=== PATIENT | female | born 1995 | race Caucasian/White ===

== ENCOUNTER 2017-06-19 11:41 | Emergency (ER) | payer BC ==
[2017-06-19 12:05] LABS: #Eosinphils 0.1 thou/uL (0.0-0.7); #Lymphocytes 1.6 thou/uL (1.20-3.40); #Monocytes 0.3 thou/uL (0.11-0.59); #Neutrophils 2.4 thou/uL (1.40-6.50); %Basophils 0.8 % (0.0-1.0); %Eosinophils 1.7 % (0.0-10.0); %Lymphocytes 36.5 % (28.0-48.0); %Monocytes 7.4 % (0.0-4.0); Hematocrit 48.2 % (36.0-47.0); Mean Platelet Volume 7.3 fL (7.4-10.4); Red Blood Cell (RBC) Count 4.92 mill/uL (4.00-5.20); White Blood Cell (WBC) Count 4.4 thou/uL (4.8-10.8)
[2017-06-19 12:17] LABS: Bilirubin Negative (Negative); Blood, Urine Small (Negative); Glucose, Urine (Dipstick) Negative (Negative); Ketone, Urine Negative (Negative); Nitrite Negative (Negative); Protein, Urine (Dipstick) Negative (Neg-Trace); Urobilinogen 0.2 mg/dL (0.2-1.0)
[2017-06-19 12:20] LABS: Bacteria/HPF None Seen HPF (None Seen); Hyaline Casts/LPF 0-3 HYALINE CAST LPF (0-3 Hyaline); RBC/HPF 0-3 HPF (0-3); Squamous Epithelial None Seen HPF (0-3); WBC/HPF None Seen HPF (0-3)
[2017-06-19 12:28] LABS: ALT (SGPT) 22 U/L (8-55); AST (SGOT) 22 U/L (5-30); Alkaline Phosphatase 108 U/L (40-150); Anion Gap 11 mmol/L (10-20); BUN (Urea Nitrogen) 12 mg/dL (8.4-21.0); Bilirubin, Total 0.7 mg/dL (0.2-1.2); Calc. Creatinine Clearance 0 mL/min (70-130); Calcium 9.7 mg/dL (7.8-10.44); Carbon Dioxide 28 mmol/L (22-29); Chloride 103 mmol/L (98-107); Estimated GFR-MDRD 82; Globulin 3.1 g/dL (2.4-3.5); Protein, Total 7.5 g/dL (6.0-8.3)
[2017-06-19] MEDS ORDERED: Dicyclomine 20 MG TAB ONE (15:44)
[2017-06-19] MEDS ORDERED: ISOVUE-370 76%-LOCM 1 ML ONE (15:54)
--- NOTE | 2017-06-19 16:44 | CT ---
CT ABDOMEN AND PELVIS WITH CONTRAST: 06/19/17 HISTORY: Right lower quadrant abdominal pain. Acute on chronic pain. FINDINGS: Lung bases are clear. No pericardial effusion. The pancreas is visualized and is normal. Liver, gallbladder, and spleen are unremarkable. No dilated loops of large or small bowel. No abnorm ally thick wall loops of large or small bowel. No adenopathy. Aortoiliac contour is normal. IMPRESSION: 1. No acute inflammatory process within the abdomen or pelvis. 2. Normal appendix. POS: [id number]
== END 2017-06-19 16:37 | disposition home or self-care (01) ==
LOC: ERS 11:41
DX: R10.31 Right lower quadrant pain (principal); R10.32 Left lower quadrant pain
CPT/HCPCS: 36415; 74177; 80053; 81003; 81015; 81025; 85025; 96360